=== PATIENT | female | born 1965 | race African-American/Black ===

== ENCOUNTER 2021-11-28 12:49 | Emergency (ER) | payer SELFPAY ==
[2021-11-28 14:06] VITALS: BP 163/100; PULSE 90; RESP 18; TEMP 37; O2SAT 99; BMI 24.9
[2021-11-28 15:09] LABS: Glucose, Whole Blood 260 mg/dL (60-115)
[2021-11-28 17:12] LABS: Appearance Urine CLEAR; Color Urine YELLOW; Glucose Urine UA >=1000 MG/DL (NEG); Leukocyte Esterase Urine NEG (NEG); Nitrite Urine NEG (NEG); PH 5.5 (5.0-8.0); Specific Gravity - Urine 1.015 (1.005-1.025); Urine Blood NEG (NEG); Urine Ketones NEG (NEG); Urine Protein NEG (NEG-TRACE)
[2021-11-28 17:20] LABS: Bacteria Urine TRACE /LPF; Mucus Urine TRACE /LPF; RBC Urine 0-2 /HPF (0); Squamous Epithelial Cell Urine TRACE /LPF; WBC Urine 0-2 /HPF (0-4)
[2021-11-28 18:48] LABS: MANUAL DIFF FLAG NO
[2021-11-28 18:51] LABS: Basophils Absolute Auto 0.1 X10*3/uL (0.0-0.2); Basophils Percent Auto 0.5 % (0-2); Eosinophils Absolute Auto 0.2 X10*3/uL (0.0-0.4); Eosinophils Percent Auto 2.3 % (0-4); Hematocrit 37.5 % (37.0-47.0); Hemoglobin 12.4 g/dl (12.0-16.0); Imm Gran Abs Auto 0.07 X10*3/uL (0.00-0.03); Imm Gran Pct Auto 0.8 % (0.0-0.4); Lymphocytes Absolute Auto 3.3 X10*3/uL (1.2-4.9); Mean Corpuscular HGB Conc 33.1 g/dl (31.0-35.0); Mean Corpuscular Hemoglobin 24.1 pg (27.0-33.0); Mean Corpuscular Volume 72.8 fL (80.0-98.0); Monocytes Absolute Auto 0.7 X10*3/uL (0.1-1.2); Monocytes Percent Auto 7.4 % (2-11); Neutrophils Absolute Auto 4.8 x10*3/uL (2.0-8.3); Platelet Count 228 X10*3/uL (160-400); Red Blood Count 5.15 X10*6/uL (4.20-5.50); Red Cell Distribution Width 13.5 % (11.0-16.0); White Blood Count 9.1 X10*3/uL (4.8-10.8)
[2021-11-28 19:13] LABS: Alanine Aminotransferase 21 U/L (0-31); Albumin Level 3.8 g/dL (3.5-5.0); Alkaline Phosphatase 78 U/L (39-117); Anion Gap 15 (12-20); Aspartate Amino Transferase 13 U/L (5-31); Bilirubin Total 0.4 mg/dL (0.0-1.0); Blood Urea Nitrogen 23 mg/dL (9-16); Calcium 9.5 mg/dL (8.4-10.2); Carbon Dioxide 27 mmol/L (22-29); Chloride 99 mmol/L (96-108); Creatinine Clr Calc Pharmacy 55.3; Estimated Glomerular Filt Rate 43; Glucose Random 462 mg/dL (60-115); Potassium 3.3 mmol/L (3.3-5.1); Sodium 138 mmol/L (135-145); Total Protein 7.4 g/dL (6.5-8.0)
[2021-11-28] MEDS: Insulin Lispro 100 UNIT/ML 3 ML VIAL 8 UNIT SUBCUT (19:52)
[2021-11-28 22:46] LABS: Acetone, serum QL Negative (Negative)
[2021-11-29 00:53] VITALS: BP 188/105; PULSE 75; RESP 16; TEMP 36.6; O2SAT 98
--- NOTE | 2021-11-29 00:59 | ED.GENADULT ---
HPI - General Adult General Chief complaint: Recheck/Abnormal Lab/Rx Stated complaint: abnormal labs Time Seen by Provider: 11/28/21 17:57 Source: patient Limitations: no limitations History of Present Illness HPI narrative: This is a 56-year-old female with a history type 2 diabetes mellitus who complains that her sugar being elevated. The patient is on Janumet 1000/50 bid, as well as gliclazide 60 mg twice a day.. The patient notes that she has been urinating frequently and also has vulvar itching. She has some chest discomfort and also has not had a bowel movement in about 2 weeks, has a feeling of pressure in her abdomen. She denies any nausea or vomiting. She has not had any fever. The patient's primary care physician is in [place] where she lives part of the year. Her reportedly lives here. The patient also has history of hypertension, takes amlodipine 5 mg as well as perindopril/amlodipine Related Data Home Medications Medication Instructions Recorded Confirmed gliclazide PO 11/28/21 perindopril arginine 3.5 1 tab PO DAILY 11/28/21 mg-amlodipine 2.5 mg tablet phytonadione (vitamin K1) 100 mcg 100 mcg PO DAILY 11/28/21 tablet Previous Rx's Medication Instructions Recorded amlodipine 5 mg tablet 5 mg PO DAILY #30 tab 11/29/21 docusate sodium 100 mg capsule 100 mg PO BID #14 cap 11/29/21 (Colace) fluconazole 150 mg tablet 150 mg PO Q3D #2 tab 11/29/21 (Diflucan) perindopril arginine 3.5 1 tab PO DAILY #30 tab 11/29/21 mg-amlodipine 2.5 mg tablet polyethylene glycol 3350 17 17 g PO BID #238 g 11/29/21 gram/dose oral powder (Miralax) sennosides 8.6 mg capsule (senna) 8.6 mg PO BEDTIME PRN #14 cap 11/29/21 Allergies Allergy/AdvReac Type Severity Reaction Status Date / Time No Known Allergies Allergy Verified 11/28/21 14:05 Review of Systems Review of Systems: Yes all other systems are reviewed and are negative Constitutional: Constitutional: Reports as per HPI, Denies fever(s) and Denies headache(s) Eyes: Eyes: Reports as per HPI and Reports no additional eye complaints ENT: Reports system reviewed and no additional complaints, except as documented, Reports as per HPI, Denies headache(s), Denies nasal congestion, Denies nasal discharge and Denies sore throat Cardiovascular: Cardiovascular: Reports as per HPI, Reports chest pain and Denies dyspnea Respiratory: Respiratory: Reports as per HPI, Denies cough and Denies dyspnea Gastrointestinal: Gastrointestinal: Reports as per HPI, Reports abdominal pain, Reports constipation, Denies diarrhea and Denies vomiting Genitourinary: Genitourinary: Reports as per HPI, Denies hematuria, Denies urinary frequency, Reports nocturia, Denies dysuria and Reports vaginal pruritus Musculoskeletal: Musculoskeletal: Reports no additional musculoskeletal complaints and Denies numbness Integumentary/Breasts: Skin/Breast: Reports as per HPI and Denies rash Neurologic: Reports as per HPI, Denies headache(s), Denies focal weakness and Denies numbness Psychiatric: Psychiatric: Reports no additional psychiatric complaints and Reports as per HPI Endocrine: Endocrine: Reports no additional endocrine complaints and Reports as per HPI Hematologic/Lymphatic: Hematologic/Lymphatic: Reports no additional hematologic/lymphatic complaints, Reports as per HPI and Reports other (No peripheral edema) [facility] Social History Social History Advance Directives: No Physical Exam ED Vital Signs: Vital Signs - 24 hr 11/28/21 14:06 11/29/21 00:53 Temperature 98.6 F 97.8 F Pulse Rate 90 75 Respiratory Rate 18 16 Blood Pressure 163/100 H 188/105 H Pulse Oximetry 99 98 BMI result Body Mass Index 24.9 Medical Decision Making [facility] Narrative Medical decision making narrative: Patient with number of complaints, has a primary care physician Ashlee, appears to be nearly out of her blood pressure medicine, also was concerned about her blood sugar being high. It was around 250 on arrival and on her labs was more around 400. The patient was given insulin as well as normal saline. Prior normal saline the blood sugar any come down to 250. Patient also complains of urinary frequency and vaginal itching, likely has a yeast infection given that she has had elevated blood sugars. Urinalysis was negative. The patient's blood pressure was not well controlled. I am refilling her blood pressure medicines for her. She states she will continue to see her primary care physician in [place]. The patient also complained of constipation and is being prescribed MiraLax, senna, and Colace Lab Data Lab results reviewed: Yes I reviewed the patient's lab results. Result diagrams: 11/28/21 18:41 11/28/21 18:41 Labs: Lab Results 11/28/21 11/28/21 11/28/21 Range/Units 14:09 17:00 18:41 WBC 9.1 (4.8-10.8) X10*3/uL RBC 5.15 (4.20-5.50) X10*6/uL Hgb 12.4 (12.0-16.0) g/dl Hct 37.5 (37.0-47.0) % MCV 72.8 L (80.0-98.0) fL MCH 24.1 L (27.0-33.0) pg MCHC 33.1 (31.0-35.0) g/dl RDW 13.5 (11.0-16.0) % Plt Count 228 (160-400) X10*3/uL MPV 12.0 (9.4-12.3) fL Immature Gran % (Auto) 0.8 H (0.0-0.4) % Neut % (Auto) 53.0 (45-73) % Lymph % (Auto) 36.0 (20-40) % [place] % (Auto) 7.4 (2-11) % Eos % (Auto) 2.3 (0-4) % Baso % (Auto) 0.5 (0-2) % Lymph # (Auto) 3.3 (1.2-4.9) X10*3/uL [place] # (Auto) 0.7 (0.1-1.2) X10*3/uL Eos # (Auto) 0.2 (0.0-0.4) X10*3/uL Baso # (Auto) 0.1 (0.0-0.2) X10*3/uL Abs Immat Gran (auto) 0.07 H (0.00-0.03) X10*3/uL Absolute Neuts (auto) 4.8 (2.0-8.3) x10*3/uL Absolute Nucleated RBC 0.000 (0.0-0.012) X10*3/uL Nucleated RBC % (auto) 0.0 (0.0-0.2) /100WBC Sodium (135-145) mmol/L Potassium (3.3-5.1) mmol/L Chloride (96-108) mmol/L Carbon Dioxide (22-29) mmol/L Anion Gap (12-20) BUN (9-16) mg/dL Creatinine (0.5-1.4) mg/dL Estim Creat Clear Calc Estimated GFR POC Glucose 260 H (60-115) mg/dL Random Glucose (60-115) mg/dL Calcium (8.4-10.2) mg/dL Total Bilirubin (0.0-1.0) mg/dL AST (5-31) U/L ALT (0-31) U/L Alkaline Phosphatase (39-117) U/L Total Protein (6.5-8.0) g/dL Albumin (3.5-5.0) g/dL Urine Color YELLOW Urine Appearance CLEAR Urine pH 5.5 (5.0-8.0) Ur Specific [place] 1.015 (1.005-1.025) Urine Protein NEG (NEG-TRACE) MG/DL Urine Glucose (UA) >=1000 H (NEG) MG/DL Urine Ketones NEG (NEG) MG/DL Urine Blood NEG (NEG) Urine Nitrite NEG (NEG) Ur Leukocyte Esterase NEG (NEG) Urine RBC 0-2 (0) /HPF Urine WBC 0-2 (0-4) /HPF Ur Squamous Epith Cells TRACE /LPF Urine Bacteria TRACE /LPF Urine Mucus TRACE /LPF Urine Yeast 1+ /HPF Acetone, Qual (Negative) 11/28/21 11/29/21 Range/Units 18:41 00:51 WBC (4.8-10.8) X10*3/uL RBC (4.20-5.50) X10*6/uL Hgb (12.0-16.0) g/dl Hct (37.0-47.0) % MCV (80.0-98.0) fL MCH (27.0-33.0) pg MCHC (31.0-35.0) g/dl RDW (11.0-16.0) % Plt Count (160-400) X10*3/uL MPV (9.4-12.3) fL Immature Gran % (Auto) (0.0-0.4) % Neut % (Auto) (45-73) % Lymph % (Auto) (20-40) % [place] % (Auto) (2-11) % Eos % (Auto) (0-4) % Baso % (Auto) (0-2) % Lymph # (Auto) (1.2-4.9) X10*3/uL [place] # (Auto) (0.1-1.2) X10*3/uL Eos # (Auto) (0.0-0.4) X10*3/uL Baso # (Auto) (0.0-0.2) X10*3/uL Abs Immat Gran (auto) (0.00-0.03) X10*3/uL Absolute Neuts (auto) (2.0-8.3) x10*3/uL Absolute Nucleated RBC (0.0-0.012) X10*3/uL Nucleated RBC % (auto) (0.0-0.2) /100WBC Sodium 138 (135-145) mmol/L Potassium 3.3 (3.3-5.1) mmol/L Chloride 99 (96-108) mmol/L Carbon Dioxide 27 (22-29) mmol/L Anion Gap 15 (12-20) BUN 23 H (9-16) mg/dL Creatinine 1.28 (0.5-1.4) mg/dL Estim Creat Clear Calc 55.3 Estimated GFR 43 POC Glucose 253 H (60-115) mg/dL Random Glucose 462 H* (60-115) mg/dL Calcium 9.5 (8.4-10.2) mg/dL Total Bilirubin 0.4 (0.0-1.0) mg/dL AST 13 (5-31) U/L ALT 21 (0-31) U/L Alkaline Phosphatase 78 (39-117) U/L Total Protein 7.4 (6.5-8.0) g/dL Albumin 3.8 (3.5-5.0) g/dL Urine Color Urine Appearance Urine pH (5.0-8.0) Ur Specific [place] (1.005-1.025) Urine Protein (NEG-TRACE) MG/DL Urine Glucose (UA) (NEG) MG/DL Urine Ketones (NEG) MG/DL Urine Blood (NEG) Urine Nitrite (NEG) Ur Leukocyte Esterase (NEG) Urine RBC (0) /HPF Urine WBC (0-4) /HPF Ur Squamous Epith Cells /LPF Urine Bacteria /LPF Urine Mucus /LPF Urine Yeast /HPF Acetone, Qual Negative (Negative) Discharge Plan Discharge Clinical Impression: Elevated glucose level, Ashlee vaginitis, Constipation Patient Disposition: Home, Self-Care Instructions: Constipation (ED), High Fiber Diet (ED), Yeast Infection (ED), Diabetic Hyperglycemia (ED) Additional Instructions: Drink plenty of water. Eat lots of vegetables. Try to avoid carbohydrates, eat more nuts, seeds, eggs, meat, vegetables. Follow-up with your primary care physician. Use the medicine as prescribed for yeast infection, as well as the laxatives. Continue using amlodipine for your blood pressure-I have refilled this for you. I am also refilling the other blood pressure medicine you are on, parent perindopril/amlodipine Prescriptions: New fluconazole [Diflucan] 150 mg tablet 150 mg PO Q3D Qty: 2 0RF polyethylene glycol 3350 [Miralax] 17 gram/dose powder 17 g PO BID Qty: 238 0RF Rx Instructions: Use up to 17 g in 8 oz water every 20 minutes until you began to have liquid stool docusate sodium [Colace] 100 mg capsule 100 mg PO BID Qty: 14 0RF senna 8.6 mg capsule 8.6 mg PO BEDTIME PRN (Reason: constipation) Qty: 14 0RF amlodipine 5 mg tablet 5 mg PO DAILY Qty: 30 1RF perindopril arginin-amlodipine 3.5-2.5 mg tablet 1 tab PO DAILY Qty: 30 1RF No Action gliclazide PO 0RF perindopril arginin-amlodipine 3.5-2.5 mg tablet 1 tab PO DAILY 0RF phytonadione (vitamin K1) 100 mcg tablet 100 mcg PO DAILY 0RF
[2021-11-29 01:01] LABS: Glucose, Whole Blood 253 mg/dL (60-115)
--- NOTE | 2021-11-29 01:09 | ECG_ITS ---
Test Reason : WEAKNESS Blood Pressure : / mmHG Vent. Rate : 072 BPM Atrial Rate : 072 BPM P-R Int : 126 ms QRS Dur : 082 ms QT Int : 422 ms P-R-T Axes : 006 023 008 degrees QTc Int : 462 ms Normal sinus rhythm Nonspecific T wave abnormality Abnormal ECG No previous ECGs available Referred By: Julio Hernández Electronically Signed By:CATRACHITO MERA MD
[2021-11-29] MEDS: 0.9 % Sodium Chloride 1,000 ML 999 ML IV (01:17)
[2021-11-29] MEDS: Fluconazole 150 MG TABLET PO (01:22)
--- NOTE | 2021-11-29 01:24 | PC.NURSE ---
20G IV started left AC, fld running, medicated per provider order. no new orders at this time.
[2021-11-29 02:18] VITALS: BP 172/84; PULSE 72; RESP 16; TEMP 37.1; O2SAT 98
--- NOTE | 2021-11-29 02:44 | PC.NURSE ---
Reviewed discharge is instructions with pt. pt verbalized understanding.
== END 2021-11-29 02:47 | disposition home or self-care (01) ==
PROVIDERS: Student in an Organized Health Care Education/Training Program; Emergency Provider Emergency Medicine
DX: E11.65 Type 2 diabetes mellitus with hyperglycemia (principal); B37.3 Candidiasis of vulva and vagina; K59.00 Constipation, unspecified; I10 Essential (primary) hypertension; Z79.84 Long term (current) use of oral hypoglycemic drugs; Z79.899 Other long term (current) drug therapy
CPT/HCPCS: 36415; 80053; 81001; 82009; 82947; 85025; 93005; 96360; 99284